=== PATIENT | male | born 1995 | race Caucasian/White ===

== ENCOUNTER 2017-10-27 03:37 | Emergency (ER) | payer BC, OTHER ==
[~2017-10-27] VITALS: Ht 182.9 cm; Wt 84.6 kg
[2017-10-27 04:45] VITALS: Ht 182.9 cm; Wt 84.6 kg
[2017-10-27 05:08] VITALS: BP 140/62; PULSE 98; O2SAT 99
--- NOTE | 2017-10-27 05:40 | EMERGENCY ROOM VISIT NOTE ---
History First contact with patient: 03:47 Chief Complaint: HEAD INJURY (MINOR) Stated Complaint: HEAD AND HAND INJURY/ETOH History of Present Illness The patient is a 22 year old male who presents to the Emergency Room with complaints of right hand pain and forehead pain. Patient states he was upset with his girlfriend and punched the wall and hit his head on the wall. Patient states he was upset and that is why he did this. Patient denies loss of conscious, facial pain, dental pain, vision problems, neck pain, back pain, numbness, tingling or any other medical complaints. No prior injury to this hand. Patient denies suicidal or homicidal ideations. No drugs. Patient states he had a few beers a few hours ago but nothing recent. Review of Systems An 10 system review of systems was completed with positives and pertinent negatives listed in the HPI. Past Medical/Surgical History none Social History Smoking Status: Never Smoker Smokeless Tobacco Use: No Alcohol Use: occasionally Drug Use: none Marital Status: in relationship Physical Exam Vital Signs Date Time Temp Pulse Resp B/P (MAP) Pulse Ox O2 Delivery O2 Flow Rate FiO2 10/27/17 05:08 98 20 140/62 99 Room Air 10/27/17 04:45 92 20 131/74 98 Room Air 10/27/17 04:45 20 98 Physical Exam VITALS: Vitals are noted on the nurse's note and reviewed by myself. Vital signs stable. GENERAL: White male pacing the room, in no acute distress, nondiaphoretic, well- developed well-nourished. SKIN: Contusion to right hand, the rest of the skin was without rashes, erythema , edema, or bruising. There is no tenting of the skin. Capillary reflex less than 2 seconds. HEAD: Normocephalic atraumatic. Frontal scalp abrasion without signs of infection EARS: External auditory canals clear, tympanic membranes pearly rubalcava without erythema or effusion bilaterally. EYES: Pupils equal round and reactive to light and accommodation. Conjunctivae without injection, sclerae without icterus. Extraocular movements intact. NOSE: Patent, turbinates without inflammation or discharge. No sinus tenderness. MOUTH: Mucous membranes moist. Pharynx without erythema or exudate. Uvula midline. Airway patent. Tongue does not deviate. NECK: Supple without nuchal rigidity. No lymphadenopathy. No thyromegaly. Cervical spine is nontender. No JVD. HEART: Regular rate and rhythm without murmurs gallops or rubs. LUNGS: Clear to auscultation bilaterally without wheezes, rales or rhonchi. No dullness to percussion. No retractions or accessory muscle use. ABDOMEN: Positive bowel sounds x 4. Normal tympanic percussion. Soft, nontender, without masses or organomegaly. Howard sign negative. No guarding or rebound tenderness. MUSCULOSKELETAL: No muscle atrophy, erythema, or edema noted. Right hand third metacarpal minimally tender to palpation with contusion present, full range of motion of the hand without pain, full range of motion without joint tenderness in all other extremities. No tenderness to palpation. Normal gait. Strength 5 /5 throughout. NEURO: Patient was alert and oriented to person place and time. Normal sensation to light and sharp touch. No focal neurological deficits. Medical Decision & Procedures ED Course Prior records/ancillary studies reviewed. Triage Nursing notes reviewed. The patient's history was concerning for traumatic head injury and hand injury Differential diagnosis: Etiologies such as concussion, contusion, fracture, subdural hematoma, epidural hematoma, intraparenchymal hemorrhage, as well as other traumatic pathologies were entertained. Physical examination findings: As above. ER treatment provided: Ice pack was applied On reassessment the patient felt better. Diagnostics interpreted by me: Imaging studies: Hand x-ray negative for fracture per my interpretation of my attending Head CT was reviewed with no intracranial bleed, arachnoid cyst present. Read by radiology. It appears the patient has a mild head injury and hand injury. Patient was neurovascularly and neurologically intact. He is well appearing. No other injuries are noted. He was ambulating without difficulties. He was actually doing push-ups in the room and training for his [employer] Patient was counseled on head injury signs and symptoms of verbalized understanding of this. He is advised to follow-up family care in a few days here in the ER sooner for headache, fevers, pain, worsening signs or symptoms or as needed. He ambulated out of the room without difficulties. By the evaluation outlined above emergent etiologies such as fracture, subdural hematoma, epidural hematoma, intraparenchymal hemorrhage, as well as others were deemed relatively unlikely. The pt informed about the findings as listed above. All questions were answered and pleased with the treatment. Return instructions were outlined and the patient was discharged in stable condition. Case reviewed with my attending Referral: The patient was referred back to their primary care physician for follow-up in 2 to 3 days for a recheck of the current condition. Medical Decision as above Medication Reconcilliation Current Medication List: was personally reviewed by me Blood Pressure Screening Patient's blood pressure: Normal blood pressure Impression Primary Impression: Closed head injury Additional Impressions: Injury of right hand Scalp abrasion Departure Information Dispostion Home / Self-Care Condition GOOD Referrals No Doctor, Assigned (PCP) Patient Instructions My [facility] Additional Instructions Head injury: Read head injury handout and return for any symptoms. Tylenol 1000 mg as needed for pain (Maximum 3000 mg Tylenol in 24 hr period). Avoid alcohol and contact sports/activities for one week and follow up with family doctor prior to returning to these activities if still symptomatic. Ice and elevate head. If your symptoms persist more than a week then follow up with the concussion clinic. Call [phone]. Return to ER sooner for headache, fevers, confusion, worsening signs or symptoms or as needed. Hand injury: Ice compresses for 20 minutes at a time four times daily for 2-3 days. Rest and elevate your injury. Return to the ER immediately for any numbness, tingling, severe pain, extreme swelling in the extremity or as needed. Call Orthopedics in 3-5 days if symptoms persist to arrange follow up for your injury. Problem Qualifiers Primary Impression: Closed head injury Encounter type: initial encounter Qualified Codes: S09.90XA - Unspecified injury of head, initial encounter
--- NOTE | 2017-10-27 06:45 | DIAGNOSTIC IMAGING REPORT ---
R HAND MIN 3 VIEWS ROUTINE CLINICAL HISTORY: punched wall trauma COMPARISON: None. DISCUSSION: The bones and joint spaces appear intact. There is no evidence of fracture, dislocation or bony disease. There is no evidence for soft tissue swelling. IMPRESSION: Negative study. The above report was generated using voice recognition software. It may contain grammatical, syntax or spelling errors. Electronically signed by: Tk Jeffery M.D. 10/27/2017 6:44 AM Dictated Date/Time: 10/27/2017 6:43 AM
--- NOTE | 2017-10-27 07:22 | DIAGNOSTIC IMAGING REPORT ---
CT SCAN OF THE BRAIN WITHOUT IV CONTRAST CLINICAL HISTORY: Head injury. COMPARISON STUDY: No priors. TECHNIQUE: Unenhanced axial CT scan of the brain is performed from the vertex to the skull base. A dose lowering technique was utilized adhering to the principles of ALARA. CT DOSE: 614.27 mGy.cm FINDINGS: Brain parenchyma: There is an approximately 7 x 3.5 cm CSF attenuation lesion in the anterior left temporal fossa. This causes mild mass effect on the left temporal lobe and is typical in appearance for an arachnoid cyst. There is no hemorrhage, midline shift, or evidence of acute territorial ischemia by CT criteria. Chan-white matter is preserved. No extra-axial fluid collection is seen. Ventricles, sulci, cisterns: Normal in configuration. Intracranial vasculature: The visualized intracranial vasculature at the skull base is normal in appearance. Calvarium: There is no depressed calvarial fracture. Sinuses and mastoids: There is mild mucosal thickening within the left maxillary, ethmoid, in the sphenoid sinuses. The mastoid air cells are well pneumatized. Orbits: The bony orbits are grossly intact. IMPRESSION: 1. No acute intracranial abnormality. 2. A large arachnoid cyst is identified in the left anterior temporal fossa. This causes mild localized mass effect. Electronically signed by: Dave Purdy M.D. 10/27/2017 7:21 AM Dictated Date/Time: 10/27/2017 7:18 AM
== END 2017-10-27 05:49 | disposition home or self-care (01) ==
LOC: EDBD 03:37 → C.EDB 03:39
DX: S09.90XA Unspecified injury of head, initial encounter (principal); S60.221A Contusion of right hand, initial encounter; S00.01XA Abrasion of scalp, initial encounter; W22.09XA Striking against other stationary object, initial encounter